=== PATIENT | female | born 1985 | race Caucasian/White ===

== ENCOUNTER 2016-09-02 21:29 | Inpatient (IN) | payer MEDICAID, OTHER ==
[2016-09-02] MEDS ORDERED: LORazepam 2 MG/ML SYRINGE IM STA (21:50)
--- NOTE | 2016-09-02 21:51 | ED ---
Psych HPI - General Chief Complaint: Psychiatric Symptoms Stated Complaint: Psych Eval Time Seen by Provider: 09/02/16 21:42 Source: patient Mode of arrival: ambulatory - History of Present Illness Initial Comments: This is a 31-year-old female with history depression not currently treated who presents emergency report for attempted suicide. She states that she's been depressed for a long time because "her life is she had ". She states that she has been depressed and has attempted suicide in past. Last night she decided to end her life and tied a noose with a rope and put around her neck. At that time her significant other came in and found her. She denies actually hitting herself. He decided to bring her in today for evaluation. Patient denies any drug ingestion. She does admit to some chest discomfort however relates this to anxiety and panic. She denies homicidal ideation however is currently suicidal. - Related Data Home Medications Medication Instructions Recorded Confirmed No Known Home Medications [No 09/02/16 09/02/16 Known Home Medications] Allergies Allergy/AdvReac Type Severity Reaction Status Date / Time No Known Allergies Allergy Verified 09/02/16 22:20 Review of Systems ROS Statement: Those systems with pertinent positive or pertinent negative responses have been documented in the HPI. ROS Other: All systems not noted in ROS Statement are negative. Past Medical History Past Medical History: No Reported History Additional Past Medical History / Comment(s): tachycardia History of Any Multi-Drug Resistant Organisms: None Reported Past Surgical History: No Surgical Hx Reported, Section Past Psychological History: Anxiety, Bipolar, Depression Smoking Status: Current every day smoker Past Alcohol Use History: Occasional Past Drug Use History: Heroin General Exam - General Exam Comments Initial Comments: Constitutional: Awake alert Appears comfortable Head: Normocephalic atraumatic Eyes: no conjunctival injection No scleral icterus EOMI Neck: No JVD Supple Heart: Regular rate rhythm normal S1-S2 no murmurs Lungs: Clear to auscultation bilaterally No wheezing No rales Abdomen: Soft nondistended nontender Extremities: Non edematous DP pulses intact Radial pulses intact Neuro: A&Ox3 No focal neurologic deficits Psych: Suicidal ideation, depressed, anxious Limitations: no limitations Course Vital Signs 09/02/16 09/02/16 21:36 23:46 Temperature 97.8 F 98.1 F Pulse Rate 77 86 Respiratory 18 18 Rate Blood Pressure 116/73 111/74 O2 Sat by Pulse 99 96 Oximetry - Reevaluation(s) Reevaluation #1: 09/02/16 22:09 EKG showing normal sinus rhythm with a rate of 86. No ST segment changes or T- wave inversions. QTC is 435. Other intervals are normal. No ectopy. Medical Decision Making - Medical Decision Making EPS evaluated the patient and believe that she requires admission. They're going to place the admission orders - Lab Data Lab Results 09/02/16 09/02/16 Range/Units 22:49 22:49 Urine HCG, Qual Not Detected (Not Detectd) Urine Opiates Screen Detected H (NotDetected) Ur Oxycodone Screen Not Detected (NotDetected) Urine Methadone Screen Not Detected (NotDetected) Ur Propoxyphene Screen Not Detected (NotDetected) Ur Barbiturates Screen Not Detected (NotDetected) U Tricyclic Antidepress Not Detected (NotDetected) Ur Phencyclidine Scrn Not Detected (NotDetected) Ur Amphetamines Screen Detected H (NotDetected) U Methamphetamines Scrn Detected H (NotDetected) U Benzodiazepines Scrn Detected H (NotDetected) Urine Cocaine Screen Not Detected (NotDetected) U Marijuana (THC) Screen Not Detected (NotDetected) Disposition Clinical Impression: Depression, Attempted suicide, Suicidal ideation Disposition: ADMITTED IP TO THIS HOSP Condition: Stable
--- NOTE | 2016-09-02 22:31 | XR ---
EXAMINATION TYPE: XR chest 2V DATE OF EXAM: 09/02/2016 10:23 PM COMPARISON: NONE HISTORY: Cough TECHNIQUE: Frontal and lateral views of the chest are obtained. FINDINGS: Heart and mediastinum are normal. Lungs are clear. Diaphragm is normal. Bony thorax and so ft tissues appear normal. IMPRESSION: Normal chest.
[2016-09-02] MEDS ORDERED: NICOTINE 21MG/24HR PATCH TRANSDERM STA (23:49)
[2016-09-03] MEDS ORDERED: LORazepam 2 MG/ML SYRINGE IM STA (00:18)
[2016-09-03] MEDS ORDERED: ZIPRASIDONE 20 MG VIAL IM PRN (01:50)
[2016-09-03] MEDS ORDERED: MAG HYDROX/AL HYDROX/SIMETH 30 ML CUP PO PRN (01:50)
[2016-09-03] MEDS ORDERED: ACETAMINOPHEN TAB 325 MG TAB PO PRN (01:50)
[2016-09-03] MEDS ORDERED: MAGNESIUM HYDROXIDE 2,400 MG/10 ML CUP PO PRN (01:50)
[2016-09-03] MEDS ORDERED: LORazepam 2 MG/ML SYRINGE IM PRN (01:55)
[2016-09-03 02:13] LABS: Appearance,Urine Clear (Clear); Bilirubin,Urine Negative (Negative); Glucose,Urine (UA) Negative (Negative); Ketones,Urine Negative (Negative); Leukocyte Esterase,Urine Trace (Negative); Mucus,Urine Rare /hpf; Nitrite,Urine Negative (Negative); PH, Urine 5.5 (5.0-8.0); Particle Count 2259; Protein,Urine Negative (Negative); RBC,Urine 1 /hpf (0-5); Specific Gravity,Urine 1.013 (1.001-1.035); Squamous Epithelial Cell,Urine 3 /hpf (0-4); UA Billing (MACRO vs. MICRO) MICRO; WBC,Urine 3 /hpf (0-5)
[2016-09-03 02:17] VITALS: BMI 25.6
[2016-09-03] MEDS: NICOTINE 21MG/24HR PATCH TRANSDERM SCH (09:28)
[2016-09-03 09:56] LABS: Basophils # (A) 0.1 k/uL (0-0.2); Basophils % (A) 1 %; CH 31.1; CHCM 34.3; Eosinophils # (A) 0.3 k/uL (0-0.7); Eosinophils % (A) 4 %; HCT 43.7 % (34.0-46.0); HDW 2.65; Luc # (Auto) 0.35; Luc % (Auto) 4; Lymphocytes % (A) 57 %; MCH 31.3 pg (25.0-35.0); MCHC 34.3 g/dL (31.0-37.0); MCV 91.2 fL (80.0-100.0); Mean Platelet Volume 7.5; Monocytes # (A) 0.4 k/uL (0-1.0); Monocytes % (A) 5 %; Neutrophils # (A) 2.5 k/uL (1.3-7.7); Neutrophils % (A) 29 %; RBC 4.79 m/uL (3.80-5.40); RDW 12.6 % (11.5-15.5); WBC 8.7 k/uL (3.8-10.6); WBC (Perox) 8.86
[2016-09-03 10:18] LABS: ALT 56 U/L (9-52); AST 54 U/L (14-36); Alkaline Phosphatase 80 U/L (38-126); Anion Gap 15 mmol/L; Blood Urea Nitrogen 7 mg/dL (7-17); Calcium 9.7 mg/dL (8.4-10.2); Carbon Dioxide 22 mmol/L (22-30); Chloride 105 mmol/L (98-107); Glucose 126 mg/dL (74-99); Non-African American GFR(MDRD) >60 (>60 ml/min/1.73 sqM); Sodium 142 mmol/L (137-145); Total Bilirubin 0.8 mg/dL (0.2-1.3); Total Protein 7.8 g/dL (6.3-8.2)
[2016-09-03 10:24] LABS: Manual Review Performed
[2016-09-03 10:25] LABS: RBC Morphology Normal
[2016-09-03] MEDS: VENLAFAXINE HCL ER 37.5 MG CAP PO SCH (11:28)
[2016-09-03] MEDS: LORazepam 1 MG TAB PO PRN (11:50)
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
--- NOTE | 2016-09-03 17:13 | CONS ---
DATE OF CONSULTATION: HISTORY OF PRESENT ILLNESS: This is a 31-year-old female with past medical history significant for heroin drug abuse intravenously. She presented to the hospital with worsening depression and return to heroin abuse after being ( ) for one year. Patient states that she ( ) for one year and she did it once ( ) and had suicidal ideation, presented to the psychiatric floor. Patient currently is denying chest pain, shortness of breath, nausea, vomiting, abdominal pain, dizziness, light-headedness or blurry vision. Patient ( ) sores in multiple stages, says that this has been going on for a long time, since she was diagnosed with hepatitis C. Patient states that sores will ( ) and then it keeps growing in size up until it is a constance-size where it is open and drains some clear discharge. Then at least a little scar when it heals completely, but that takes almost 2 months to heal. Patient had two on her upper neck, one on the upper area between the shoulder blades, and one on the lower area of the right lower spine. The one on the upper shoulder seems to be an open sore with clear drainage, constance-size. No erythema or abscess appreciated on physical examination. ALLERGIES: NO KNOWN DRUG ALLERGIES. PAST MEDICAL HISTORY: Significant for hepatitis C because of heroin abuse. HOME MEDICATIONS: None. PAST SURGICAL HISTORY: Positive for . FAMILY HISTORY: Reviewed and negative. SOCIAL HISTORY: Patient has 2 children. She is single. Denied alcohol abuse. States that she smokes 1 pack per day and her last heroin injection was prior to presentation. REVIEW OF SYSTEMS: All 14 systems were reviewed and are negative except as above. PHYSICAL EXAMINATION: HEENT: Atraumatic, normocephalic. PERRLA. NECK: Supple. No masses or thyromegaly. LUNGS: Clear to auscultation bilaterally. HEART: S1, S2. ABDOMEN: Soft, non-tender. Positive bowel sounds in the upper quadrants. LOWER EXTREMITIES: No edema. SKIN: Positive for findings as above in the History of Present Illness. PSYCH: Alert and oriented x3. NEURO: Cranial nerves 2 to 12 intact. ( ) IMAGING AND LABS: Reviewed and stable. ASSESSMENT: 1. Suicidal ideation with acute depression. Continue with management. 2. Hepatitis C. I had a long discussion with the patient. She is aware that there is treatment for hepatitis C now, and she can follow up with her primary care physician ( ) for outpatient infectious disease clinic, but patient needs to be ( ) and away from any IV drug abuse or any other habit. Patient would like to follow up as outpatient. 3. Open sores on her leg. No signs of secondary infection. I would like continue monitoring for the time being. Apply triple antibiotic twice daily for the open sores and avoid skin irritation. 4. Tobacco dependency. Counseled patient regarding smoking cessation. 5. Discharge process per primary service recommendation.
[2016-09-03] MEDS: NEOMYCIN-BACITRACIN-POLY OINT 14 GM TUBE TOPICAL SCH (21:47)
[2016-09-04] MEDS: LORazepam 1 MG TAB PO PRN ×2 (06:22→17:26)
[2016-09-04] MEDS: VENLAFAXINE HCL ER 37.5 MG CAP PO SCH (08:48)
[2016-09-04] MEDS: NICOTINE 21MG/24HR PATCH TRANSDERM SCH (08:48)
[2016-09-04] MEDS: NEOMYCIN-BACITRACIN-POLY OINT 14 GM TUBE TOPICAL SCH ×2 (09:10→21:25)
--- NOTE | 2016-09-04 15:29 | P.PN ---
Progress Note - Text SUBJECTIVE: I reviewed the medical record, interviewed Mr. Diez and discussed her treatment and treatment plan during team meeting. She complained of continued feelings of depression, fatigue, hopelessness and helplessness. She denied current suicidal thoughts. She feels hopeless and helpless regarding her financial situation, child custody, visitation rights and possibility of incarceration for nonpayment of child support. 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 She has not applied for a job in the medical field because she fears that the employ would dismiss her application once they learn of her possession charges. She revealed that she remains on probation for the possession charges and will be on probation for the next 2 years. She is no longer expected to provide random urine samples for drug screens. Her aunt will not allow her to return because she relapsed to heroin. Her social sciences research scientist spoke with her boyfriend who agreed to allow her to return to his apartment. OBJECTIVE: She presented as a disheveled and fatigued appearing 31-year-old female who yawned frequently during the interview. Her resting pulse rate was 85. She denied sweating, restlessness, tone or joint aching, runny nose or caring, GI upset, tremor or increased anxiety. She maintained eye contact and attended to interview. She had no distinguishing features or prominent physical abnormalities. She had a sad facial expression. She showed psychomotor retardation but no abnormal involuntary movements. Her speech was spontaneous with decreased rate and rhythm. Her affect was depressed and not reactive. She denied suicidal ideation or wishes. She denied homicidal ideation. She expressed depressive cognitions including hopelessness, helplessness and worthlessness. She ruminated about her multiple psychosocial problems. She did not express obsessions, ideas reference or paranoid ideation. Her thinking was abstract and her associations were coherent and logical. She denied hallucinations and did not appear to be responding to internal stimuli. ASSESSMENT: She is experiencing minimal symptoms of opiate withdrawal. She continues to feel depressed, hopeless and helpless but is denying current suicidal ideation, plan or intent. She has multiple psychosocial problems that are most likely the cause of her depressed state. PLAN: Continue inpatient hospitalization for treatment of depression, hopelessness and helplessness. Continue venlafaxine ER 37.5 mg daily with titration according to clinical effect and side effects. Continue Seroquel 100 mg at bedtime when necessary for sleep and lorazepam 1 mg by mouth/IM every 8 hours when necessary for agitation or acute anxiety. Encourage participation in therapeutic groups and activities. Clinical status response to treatment daily basis.
--- NOTE | 2016-09-04 16:25 | P.CONS ---
History of Present Illness - Reason for Consult Consult date: 09/04/16 medical management - History of Present Illness This is a 31-year-old female. She does not have a primary care physician. She has a past medical history of tachycardia requiring admission to the hospital, hepatitis C without treatment, anxiety, bipolar, depression, PTSD, tobacco use and dependence, polysubstance abuse with marijuana, methamphetamines and heroin use. Patient states that she has been clean for 1 year and recently relapsed 1 day on Wednesday. She states she used heroin. She then was very depressed and suicidal and she was going to hang herself. Her came home early and found her and stopped her before she did anything. She ended up coming into the hospital the next day after her family convinced her to come in for evaluation. Patient has been admitted to the mental health unit. AST 54 and ALT 56. Urinalysis was nitrate and leukoesterase trace. HCG not detected. Urine drug screen was positive for amphetamines, methamphetamines and benzodiazepines. Patient is complaining of skin lesion on the back of her neck and upper back. EKG within normal limits with no acute QT prolongation. Review of Systems All systems: negative Constitutional: Denies chills, Denies fever Eyes: denies blurred vision, denies pain Ears, nose, mouth and throat: Denies headache, Denies sore throat Cardiovascular: Denies chest pain, Denies shortness of breath Respiratory: Denies cough Gastrointestinal: Denies abdominal pain, Denies diarrhea, Denies nausea, Denies vomiting Genitourinary: Denies dysuria, Denies hematuria Musculoskeletal: Denies myalgias Integumentary: Reports lesions, Reports wounds, Denies pruritus, Denies rash Neurological: Denies numbness, Denies weakness Psychiatric: Reports anxiety, Reports depression, Reports hopelessness, Reports suicidal ideation Endocrine: Denies fatigue, Denies weight change Past Medical History Past Medical History: No Reported History Additional Past Medical History / Comment(s): tachycardia, hep C positive History of Any Multi-Drug Resistant Organisms: None Reported Past Surgical History: No Surgical Hx Reported, Section Past Anesthesia/Blood Transfusion Reactions: No Reported Reaction Past Psychological History: Anxiety, Bipolar, Depression, Panic Disorder, PTSD Smoking Status: Current every day smoker Past Alcohol Use History: Occasional Additional Past Alcohol Use History / Comment(s): It has been years since "I had a drink." Patient smokes 1 pack per day for 15 years. She denies any medical marijuana, marijuana or other street drugs currently except for her relapsed on heroin on Wednesday. Past Drug Use History: Heroin, IV Drug Use, Marijuana, Methamphetamine - Past Family History Father Family Medical History: CVA/TIA, Diabetes Mellitus Additional Family Medical History / Comment(s): Uncle, 2 cousins and Grandpa had Neuorfibromatosis. father is alive at age 56 and patient has no contact with him. Mother Additional Family Medical History / Comment(s): Mother is alive at age 53 with history of degenerative disc disease and depression. Sister(s) Additional Family Medical History / Comment(s): She has 2 sisters with bipolar disorder, depression and anxiety. Patient does not have any brothers. Patient has 1 son and 1 daughter with no major medical problems and they live with their father. Medications and Allergies Home Medications Medication Instructions Recorded Confirmed Type No Known Home Medications [No 09/02/16 09/03/16 History Known Home Medications] Allergies Allergy/AdvReac Type Severity Reaction Status Date / Time No Known Allergies Allergy Verified 09/03/16 02:30 Physical Exam Vitals: Vital Signs Temp Pulse Resp BP 09/04/16 06:44 98.0 F 85 16 112/64 Gen: This is a 31-year-old female. She is cooperative and appears to be in no acute distress. HEENT: Head is atraumatic, normocephalic. Pupils equal, round. Sclerae is anicteric. NECK: Supple. No JVD. No lymphadenopathy. No thyromegaly. LUNGS: Clear to auscultation. No wheezes or rhonchi. No intercostal retractions. HEART: Regular rate and rhythm. No murmur. ABDOMEN: Soft. Bowel sounds are present. No masses. No tenderness. EXTREMITIES: No pedal edema. No calf tenderness. SKIN: red and swollen follicular areas on her upper back right side and in her scalp posterior hairline area. NEUROLOGICAL: Patient is awake, alert and oriented x3. Cranial nerves 2 through 12 are grossly intact. Results CBC & Chem 7: 09/03/16 09:30 09/03/16 09:30 Assessment and Plan Plan: 1. Depression and suicidal ideation. Patient admitted to the mental health unit. Continue current plan of care. 2. Tobacco use and dependence. Continue nicotine patch. 3. History of polysubstance abuse with recent relapse using heroin. Continue as in #1. 4. Folliculitis the upper back and occipital region. Patient started on Bactrim double strength twice daily for 7 days. Impression and plan of care have been directed as dictated by the signing physician. Obdulia Mclain nurse practitioner acting as scribe for signing physician. Time with Patient: Greater than 30
[2016-09-04] MEDS: SULFAMETHOX-TMP 800-160MG 1 EACH TAB PO SCH (17:00)
[2016-09-04] MEDS: QUEtiapine 100 MG TAB PO PRN (22:41)
[2016-09-05] MEDS: VENLAFAXINE HCL ER 37.5 MG CAP PO SCH (08:22)
[2016-09-05] MEDS: SULFAMETHOX-TMP 800-160MG 1 EACH TAB PO SCH ×2 (08:22→21:39)
[2016-09-05] MEDS: NICOTINE 21MG/24HR PATCH TRANSDERM SCH (08:24)
[2016-09-05] MEDS: NEOMYCIN-BACITRACIN-POLY OINT 14 GM TUBE TOPICAL SCH ×2 (08:24→21:39)
[2016-09-05] MEDS: LORazepam 1 MG TAB PO PRN ×2 (08:25→17:30)
--- NOTE | 2016-09-05 15:06 | P.PN ---
Progress Note - Text Interval history: I reviewed medical record and interviewed patient She reports that she is feeling tired and fatigued ,rates her depression and anxiety ,both 4/10 ,10 being the worse She denies any sleeping or appetite problems When asked if she is having any suicidal ideation she said "NOT THIS MINUTE" ,she talked about her short term goal "TO STAY CLEAN AND GO BACK TO SCHOOL" Mental status exam: The patient is a female appearing her stated age. She is dressed in her own clothing. Hygiene adequate grooming fair Eye contact good she is cooperative,denies any current suicidal or homicidal ideation ,denies any current psychotic features No verbal or physical aggressiveness. Plan:We will increase Effexor to 75 mg ,continue rest of medications We will continue to monitor her for safety and encourage her participation milieu. Vital signs reviewed.
[2016-09-05] MEDS: QUEtiapine 100 MG TAB PO PRN (22:53)
[2016-09-06 07:20] VITALS: TEMP 98.1
[2016-09-06] MEDS: VENLAFAXINE HCL ER 75 MG CAP PO SCH (08:22)
[2016-09-06] MEDS: NICOTINE 21MG/24HR PATCH TRANSDERM SCH (08:22)
[2016-09-06] MEDS: NEOMYCIN-BACITRACIN-POLY OINT 14 GM TUBE TOPICAL SCH ×2 (08:22→20:23)
[2016-09-06] MEDS: SULFAMETHOX-TMP 800-160MG 1 EACH TAB PO SCH ×2 (08:22→20:23)
[2016-09-06] MEDS: LORazepam 1 MG TAB PO PRN ×2 (08:24→17:45)
--- NOTE | 2016-09-06 16:01 | P.PN ---
Progress Note - Text Interval history: I reviewed medical record and interviewed patient She reports that she is feeling better than yesterday ,able to participate in morning groups ,discussed treatment options for SA ,patient stated that she was in [facility] for one year and did not help in her recovery ,she has been in NA and has sponsor Mental status exam: The patient is a female appearing her stated age. She is dressed in her own clothing. Hygiene adequate grooming fair Eye contact good she is cooperative,denies any current suicidal or homicidal ideation ,denies any current psychotic features No verbal or physical aggressiveness. Plan:We will continue medications ,same We will continue to monitor her for safety and encourage her participation milieu. Vital signs reviewed.
[2016-09-06] MEDS: QUEtiapine 100 MG TAB PO PRN (23:09)
[2016-09-07 06:37] VITALS: BP 107/55; PULSE 73; RESP 16
[2016-09-07] MEDS: NEOMYCIN-BACITRACIN-POLY OINT 14 GM TUBE TOPICAL SCH (08:30)
[2016-09-07] MEDS: NICOTINE 21MG/24HR PATCH TRANSDERM SCH (08:30)
[2016-09-07] MEDS: VENLAFAXINE HCL ER 75 MG CAP PO SCH (08:30)
[2016-09-07] MEDS: SULFAMETHOX-TMP 800-160MG 1 EACH TAB PO SCH (08:30)
[2016-09-07] MEDS: LORazepam 1 MG TAB PO PRN (08:31)
--- NOTE | 2016-09-07 12:53 | P.DS ---
Providers Date of admission: 09/03/16 01:14 Attending physician: Jack Ramirez MD Consults: 09/03/16 01:50 Consult Physician Routine Consulting Provider: Anneliese Troy Consult Reason/Comments: For H & P for Medical Follow Up Do you want consulting provider notified?: Yes, Notify in am Primary care physician: Stated None - Discharge Diagnosis(es) (1) Major depressive disorder, recurrent severe without psychotic features Status: Acute Priority: High (2) Opioid use disorder, severe, dependence Status: Chronic Priority: High (3) Opiate withdrawal Status: Resolved Priority: Low (4) Suicidal ideation Status: Resolved Priority: High (5) Hepatitis C Status: Chronic Priority: Low (6) Folliculitis Status: Acute Priority: Low Hospital Course: Mr. Diez is a 31-year-old female admitted voluntarily to the psychiatric unit with complaints of depression and suicidal ideation. She complained of feeling depressed and having thoughts of suicide over the past 3 months. She "cries every day". She feels hopeless and has difficulty with sleep. She stated she sometimes cannot sleep for days at other times sleeps for "days on and." The night before admission she planned on suicide. She made from a rope to hang herself. She didn't hang herself because she couldn't "figure out what to affix the rope to." Her boyfriend came home and according to numerous.. She attributes depression to not being able to visit with her children and relapse to heroin. She lost custody when she was incarcerated in 2014. 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 She described a circular and recurrent rumination about work, child support and child custody. An example his thinking is: If she doesn't pay child support she would go to shelter. If she goes to shelter she cannot work. If she cannot work she cannot pay child support and if she doesn't pay child support she will not see her children. She is responsible for $600 per month in child support. She relapsed to heroin on Wednesday because she lost her job on Wednesday. She injected heroin several times on Wednesday. She denied use of other drugs and could not explain the presence of amphetamine and methamphetamine in her urine drug screen. She was admitted to a psychiatric hospital 3 times between the ages of 14 and 16 years old purportedly for depression, anxiety and suicidal ideation. Her only other admission to a psychiatric facility as an adult was this unit in December 2008. Her discharge diagnoses included major depressive disorder recurrent , severe, generalized anxiety disorder rule out panic disorder and opiate use disorder. She was discharged with Zoloft 50 mg daily and a referral to [facility]. She denied a history of symptoms suggestive of alex or hypomania. She began using or opioid pain medicines when she was 16 years old. She started using heroin at 21. She's been in the approximately 9 substance abuse treatment programs including [place], [place], [facility], [facility] and [facility]. Her last substance abuse treatment episode was one year ago at [place]. She has never attended a methadone clinic. A private physician prescribed Suboxone for 1 year in 2012. She was abstinence from heroin while she was taking Suboxone. She stopped the Suboxone when her insurance wouldn't pay for the medication; she could not afford private pay. She described "occasional" use of marijuana and alcohol. She denied use of other drugs such as cocaine, crack cocaine and methamphetamine, other stimulants etc. She is involved with Narcotics Anonymous and Alcoholics Anonymous. She has a sponsor and a home group. We admitted her to the psychiatric unit under care of this selling underwriter. We provided a biopsychosocial assessment. The analytical consultant manager produce provided the initial medical history and physical exam. The analytical consultant's diagnosis includes hepatitis C, folliculitis and abrasion of her legs and prescribed Bactrim DS twice a day for 7 days for folliculitis and triple antibiotic treatment twice a day to leg abrasions. She had minimal symptoms of opiate withdrawal and did not require treatment with Catapres. We started venlafaxine titrating the dose to 75 mg for depression and Seroquel 100 mg at bedtime for insomnia. Her depression improved during the brief hospitalization. We discussed options for treatment of her opiate use problems. She stated that she cannot attend a methadone clinic because she does not have a car. She was interested in resuming Suboxone and plans to investigate if her current insurance will pay for Suboxone. She was interested in continued mental health and substance abuse treatment and plans to resume her involvement with Narcotics and Alcoholics Anonymous. She plans to return to her boyfriend's home after discharge. She'll follow up with her primary care provider for her medical problems. At time of discharge she denied thoughts of or suicide. Patient Condition at Discharge: Stable Plan - Discharge Summary New Discharge Prescriptions: Qpvuprzs-Jqhlbezclz-Rzcs Oint [Triple Antibiotic Ointment] 1 applic TOPICAL BID 30 Days Nicotine 21Mg/24Hr Patch [Habitrol] 1 patch TRANSDERM DAILY 14 Days QUEtiapine [SEROquel] 100 mg PO HS PRN 30 Days PRN Reason: Insomnia Sulfamethox-Tmp 800-160Mg [Bactrim DS 800-160 mg] 1 each PO BID 6 Days Venlafaxine HCl ER [Effexor XR] 75 mg PO DAILY 30 Days Discharge Medication List Kfokiobw-Maitnlcmvu-Dcbb Oint [Triple Antibiotic Ointment] 1 applic TOPICAL BID 30 Days 09/07/16 [Rx] Nicotine 21Mg/24Hr Patch [Habitrol] 1 patch TRANSDERM DAILY 14 Days 09/07/16 [Rx ] QUEtiapine [SEROquel] 100 mg PO HS PRN 30 Days 09/07/16 [Rx] Sulfamethox-Tmp 800-160Mg [Bactrim DS 800-160 mg] 1 each PO BID 6 Days 09/07/16 [Rx] Venlafaxine HCl ER [Effexor XR] 75 mg PO DAILY 30 Days 09/07/16 [Rx] Follow up Appointment(s)/Referral(s): [facility] [Outside] - 09/09/16 2:00 pm (Intake edie Prater 09/09/16 at 2:00 pm) None,Stated [Primary Care Provider] - 1-2 days Patient Instructions/Handouts: How to Stop Smoking (DC), Depression (DC), Suicide Prevention for Adults (DC) Activity/Diet/Wound Care/Special Instructions: Activity and diet as tolerated. Avoid the use of street drugs and alcohol. Take all medications as prescribed. When you are in need of refills on your medications please contact your medical provider and/or outpatient psychiatrist to have this done. Please go to scheduled outpatient appointment for aftercare. If symptoms return or become worse call the crisis line at and/ or to the nearest emergency room for an evaluation. Discharge Disposition: HOME SELF-CARE
== END 2016-09-07 11:46 | disposition home or self-care (01) | DRG 885 ==
LOC: EC 21:29 → 3MHU 09-03 01:14
PROVIDERS: ADMIT Psychiatry & Neurology Psychiatry; ATTEND Psychiatry & Neurology Psychiatry
DX: F33.2 Major depressive disorder, recurrent severe without psychotic features (principal); R45.851 Suicidal ideations; F11.23 Opioid dependence with withdrawal; B19.20 Unspecified viral hepatitis C without hepatic coma; F12.90 Cannabis use, unspecified, uncomplicated; F17.200 Nicotine dependence, unspecified, uncomplicated; F41.0 Panic disorder [episodic paroxysmal anxiety]; F41.1 Generalized anxiety disorder; F43.10 Post-traumatic stress disorder, unspecified; G47.00 Insomnia, unspecified; L73.9 Follicular disorder, unspecified; Z59.9 Problem related to housing and economic circumstances, unspecified; Z81.8 Family history of other mental and behavioral disorders; Z91.410 Personal history of adult physical and sexual abuse
CPT/HCPCS: 71020; 80053; 80306; 81001; 81025; 82075; 84443; 85025; 93005; 96372; 99285

== ENCOUNTER 2016-09-27 00:42 | Emergency (ER) | payer OTHER ==
--- NOTE | 2016-09-27 01:04 | ED ---
General Adult HPI - General Chief complaint: Psychiatric Symptoms Stated complaint: Mental Health Time Seen by Provider: 09/27/16 00:53 Source: patient, RN notes reviewed Mode of arrival: ambulatory Limitations: no limitations - History of Present Illness Initial comments: This is a 31-year-old female presents with suicidal ideation. Patient states she does have a plan. Patient states she did heroin today for the first time in 1 month to make it easier for her to commit suicide. Patient denies any homicidal thoughts. Patient denies alcohol use but admits to tobacco use. Patient denies any recent fever, chills, shortness breath, chest pain, abdominal pain, nausea/vomiting/diarrhea, back pain, numbness, tingling, hematuria, headache, or visual changes, or any other complaints. - Related Data Previous Rx's Medication Instructions Recorded QUEtiapine [SEROquel] 100 mg PO HS PRN 30 Days 09/07/16 Venlafaxine HCl ER [Effexor XR] 75 mg PO DAILY 30 Days 09/07/16 Allergies Allergy/AdvReac Type Severity Reaction Status Date / Time No Known Allergies Allergy Verified 09/27/16 00:49 Review of Systems ROS Statement: Those systems with pertinent positive or pertinent negative responses have been documented in the HPI. ROS Other: All systems not noted in ROS Statement are negative. Past Medical History Past Medical History: No Reported History Additional Past Medical History / Comment(s): tachycardia, hep C positive History of Any Multi-Drug Resistant Organisms: None Reported Past Surgical History: Section Past Anesthesia/Blood Transfusion Reactions: No Reported Reaction Past Psychological History: Anxiety, Bipolar, Depression, Panic Disorder, PTSD Smoking Status: Current every day smoker Past Alcohol Use History: None Reported Additional Past Alcohol Use History / Comment(s): It has been years since "I had a drink." Patient smokes 1 pack per day for 15 years. She denies any medical marijuana, marijuana or other street drugs currently except for her relapsed on heroin on Wednesday. Past Drug Use History: Heroin, IV Drug Use, Marijuana, Methamphetamine - Past Family History Father Family Medical History: CVA/TIA, Diabetes Mellitus Additional Family Medical History / Comment(s): Uncle, 2 cousins and Grandpa had Neuorfibromatosis. father is alive at age 56 and patient has no contact with him. Mother Additional Family Medical History / Comment(s): Mother is alive at age 53 with history of degenerative disc disease and depression. Sister(s) Additional Family Medical History / Comment(s): She has 2 sisters with bipolar disorder, depression and anxiety. Patient does not have any brothers. Patient has 1 son and 1 daughter with no major medical problems and they live with their father. General Exam - General Exam Comments Initial Comments: General: The patient is awake and alert, in no distress, and does not appear acutely ill. Eye: Pupils are equal, round and reactive to light, extra-ocular movements are intact. No nystagmus. There is normal conjunctiva bilaterally. No signs of icterus. Ears: TMs pink and pearly with intact cone of light bilaterally. Normal external ear canals Nose: Nasal turbinates pink and moist Mouth and throat: There are moist mucous membranes and no oral lesions. Neck: The neck is supple, there is no tenderness or JVD. Cardiovascular: There is a regular rate and rhythm. No murmur, rub or gallop is appreciated. Respiratory: Lungs are clear to auscultation, respirations are non-labored, breath sounds are equal. No wheezes, stridor, rales, or rhonchi. Gastrointestinal: Soft, non-distended, non-tender abdomen without masses or organomegaly noted. There is no rebound or guarding present. No CVA tenderness. Bowel sounds are unremarkable. Musculoskeletal: Normal ROM, no tenderness. Strength 5/5. Sensation intact. Radial pulses equal bilaterally 2+. Neurological: A&O x 3. CN II-XII intact, There are no obvious motor or sensory deficits. Coordination appears grossly intact. Speech is normal. Skin: Skin is warm and dry and no rashes or lesions are noted. Psychiatric: Cooperative, appropriate mood & affect, normal judgment. Limitations: no limitations Course Vital Signs 09/27/16 00:46 Temperature 98.2 F Pulse Rate 110 H Respiratory 20 Rate Blood Pressure 149/76 O2 Sat by Pulse 97 Oximetry Medical Decision Making - Medical Decision Making This is a 31-year-old female with suicidal ideation. Physical exam is within normal limits. Urine drug screen was done along with urine hCG and EtOH. EtOH was negative. Patient was positive for opiates and benzodiazepines. EPS was consulted. Patient is very anxious after psych evaluation and was given Ativan in the EC. Patient states she took a Xanax around noon yesterday. At this time patient will be admitted to psych. - Lab Data Lab Results 09/27/16 09/27/16 Range/Units 01:30 01:30 Urine HCG, Qual Not Detected (Not Detectd) Urine Opiates Screen Detected H (NotDetected) Ur Oxycodone Screen Not Detected (NotDetected) Urine Methadone Screen Not Detected (NotDetected) Ur Propoxyphene Screen Not Detected (NotDetected) Ur Barbiturates Screen Not Detected (NotDetected) U Tricyclic Antidepress Not Detected (NotDetected) Ur Phencyclidine Scrn Not Detected (NotDetected) Ur Amphetamines Screen Not Detected (NotDetected) U Methamphetamines Scrn Not Detected (NotDetected) U Benzodiazepines Scrn Detected H (NotDetected) Urine Cocaine Screen Not Detected (NotDetected) U Marijuana (THC) Screen Not Detected (NotDetected) Disposition Clinical Impression: Suicidal ideation Disposition: ADMITTED IP TO THIS HOSP Referrals: None,Stated [Primary Care Provider] - 1-2 days Decision Time: 03:42
[2016-09-27] MEDS ORDERED: BENZOCAIN/BENZALKONM ORAL GEL 12 GM TUBE MM STA (01:50)
[2016-09-27] MEDS ORDERED: LORazepam 1 MG TAB PO STA (03:41)
[2016-09-27] MEDS ORDERED: LORazepam 2 MG/ML SYRINGE IM STA (04:49)
[2016-09-27 05:24] LABS: Appearance,Urine Clear (Clear); Bilirubin,Urine Negative (Negative); Glucose,Urine (UA) Negative (Negative); Ketones,Urine Negative (Negative); Leukocyte Esterase,Urine Negative (Negative); Nitrite,Urine Negative (Negative); PH, Urine 5.5 (5.0-8.0); Protein,Urine Negative (Negative); Specific Gravity,Urine 1.003 (1.001-1.035); UA Billing (MACRO vs. MICRO) CHEM; Urobilinogen,Urine <2.0 mg/dL (<2.0)
[2016-09-27 05:34] LABS: ALT 65 U/L (9-52); AST 58 U/L (14-36); Alkaline Phosphatase 64 U/L (38-126); Anion Gap 11 mmol/L; Blood Urea Nitrogen 7 mg/dL (7-17); CH 31.2; CHCM 35.1; Calcium 9.2 mg/dL (8.4-10.2); Carbon Dioxide 23 mmol/L (22-30); Chloride 106 mmol/L (98-107); Glucose 91 mg/dL (74-99); HCT 35.7 % (34.0-46.0); HGB 12.4 gm/dL (11.4-16.0); MCHC 34.8 g/dL (31.0-37.0); MCV 89.2 fL (80.0-100.0); Mean Platelet Volume 6.9; Non-African American GFR(MDRD) >60 (>60 ml/min/1.73 sqM); Potassium 3.9 mmol/L (3.5-5.1); RDW 12.3 % (11.5-15.5); Sodium 140 mmol/L (137-145); Total Bilirubin 0.5 mg/dL (0.2-1.3); Total Protein 6.9 g/dL (6.3-8.2); WBC 7.3 k/uL (3.8-10.6); WBC (Perox) 7.65
[2016-09-27] MEDS ORDERED: ZIPRASIDONE 20 MG VIAL IM STA (06:17)
[2016-09-27 07:08] LABS: Add Differential Manual Differential
[2016-09-27 07:14] LABS: Nucleated Red Blood Cells 0 /100 WBC (0-0); Total Cells Counted 100
[2016-09-27 09:26] VITALS: BP 95/54; PULSE 48; RESP 16; TEMP 98.4
== END 2016-09-27 09:55 | disposition other institution (70) ==
LOC: EC 00:42
DX: R45.851 Suicidal ideations (principal); F43.10 Post-traumatic stress disorder, unspecified; F31.9 Bipolar disorder, unspecified; F41.0 Panic disorder [episodic paroxysmal anxiety]; F17.200 Nicotine dependence, unspecified, uncomplicated; Z81.8 Family history of other mental and behavioral disorders
CPT/HCPCS: 99284; 96372 ×2; 82075; 36415; 80053; 85025; 81003; 81025; 80306; J2060; J3486